=== PATIENT | female | born 1970 | race Caucasian/White ===

== ENCOUNTER → 2017-04-27 | Outpatient (CLI) | payer BC ==
[~2017-04-27] MED LIST: ATOR20 PO; CEPH500 PO; CYCL10 PO; HYDACE10B PO; HYDACE5 PO; HYDACE5325 PO; HYDR1TAB94 PO; IBUP200; IBUP400; IBUP400 PO; IBUP800 PO; META800 PO; NAPR500 PO; NAPR550 PO; PROM25 PO; PROP10 PO; RXCYCL10 PO; RXHYDMOR2 PO; TOBR.3OPSO OP; VENL75ER PO; Valium5 MG PO
== END ==
LOC: LAB EV 13:08
DX: N30.01 Acute cystitis with hematuria (principal)
CPT/HCPCS: 87077; 87086; 87186

== ENCOUNTER → 2018-05-31 | Outpatient (CLI) | payer BC | END | disposition home or self-care (01) | LOC: LAB 17:24 → LAB SHORT 17:24 | PROVIDERS: Hospitalist | DX: Z12.4 Encounter for screening for malignant neoplasm of cervix (principal) | CPT/HCPCS: G0145 ==

== ENCOUNTER 2019-05-10 19:18 | Emergency (ER) | payer BC ==
[~2019-05-10] VITALS: Ht 170.2 cm; Wt 104.3 kg
== END 2019-05-10 21:59 | disposition home or self-care (01) ==
LOC: ER 19:18
DX: G43.909 Migraine, unspecified, not intractable, without status migrainosus (principal); Z88.0 Allergy status to penicillin; Z88.8 Allergy status to other drugs, medicaments and biological substances
CPT/HCPCS: 36415; 96361; 96374; 96375; 99283-25; J1100; J1200; J1885; J2765; J7120

== ENCOUNTER 2019-08-24 03:23 | Emergency (ER) | payer OTHER, BC ==
[~2019-08-24] VITALS: Ht 170.2 cm; Wt 104.3 kg
[2019-08-25 06:10] LABS: HCV ANTIBODY 0.1 (0.0-0.9); HIV SCREEN 4TH GENERATION WRFX Non Reactive (Non Reactive)
== END 2019-08-24 03:36 | disposition home or self-care (01) ==
LOC: ER 03:23
PROVIDERS: Emergency Medicine
DX: Z77.21 Contact with and (suspected) exposure to potentially hazardous body fluids (principal); Z88.8 Allergy status to other drugs, medicaments and biological substances; Z88.0 Allergy status to penicillin; W46.0XXA Contact with hypodermic needle, initial encounter; Y99.0 Civilian activity done for income or pay
CPT/HCPCS: 36415; 84460; 86317; 86703; 86803; 87340; 87389; 99283

== ENCOUNTER 2020-11-21 22:25 | Emergency (ER) | payer OTHER, BC ==
[~2020-11-21] VITALS: Ht 170.2 cm; Wt 79.4 kg
== END 2020-11-21 23:00 | disposition home or self-care (01) ==
LOC: ER 22:25
DX: T15.92XA Foreign body on external eye, part unspecified, left eye, initial encounter (principal); Z88.8 Allergy status to other drugs, medicaments and biological substances; Z88.0 Allergy status to penicillin; W45.8XXA Other foreign body or object entering through skin, initial encounter
CPT/HCPCS: 99283; A9270

== ENCOUNTER → 2024-07-05 | Outpatient (CLI) | payer BC ==
[2024-07-13 14:17] LABS: HPV HIGH RISK BY TMA Not Detected; HPV SOURCE Cervical
== END ==
LOC: LAB 17:33 → LAB SHORT 17:33
PROVIDERS: Physician Assistant
DX: Z01.419 Encounter for gynecological examination (general) (routine) without abnormal findings (principal)
CPT/HCPCS: 87624; G0123